=== PATIENT | male | born 1985 | race Caucasian/White ===

== ENCOUNTER 2017-11-04 19:39 | Emergency (ER) | payer OTHER ==
[2017-11-04] MEDS: IBUPROFEN 800 MG TABLET. PO ×2 (19:55)
[2017-11-04] MEDS: HYDROcodone/APAP 5/325MG 1 TAB TABLET PO ×2 (19:55)
== END 2017-11-04 20:59 | disposition home or self-care (01) ==
LOC: ER 19:39
DX: S39.012A Strain of muscle, fascia and tendon of lower back, initial encounter (principal); V43.52XA Car driver injured in collision with other type car in traffic accident, initial encounter; Y93.I9 Activity, other involving external motion; Y92.410 Unspecified street and highway as the place of occurrence of the external cause; Y99.8 Other external cause status
CPT/HCPCS: 72131; 99284-25